=== PATIENT | female | born 1940 | race Caucasian/White ===

== ENCOUNTER 2022-12-08 23:10 | Emergency (ER) | payer OTHER, MEDICAID ==
[~2022-12-08] VITALS: Ht 154.9 cm; Wt 65.0 kg
[~2022-12-08 23:10] MED LIST: AMLO5TAB88; LOSA100T4; METF-415; MONT-39; SITA100T11
[2022-12-08 23:18] VITALS: BP 195/77; O2SAT 98
[2022-12-09] MEDS ORDERED: ACETAMINOPHEN 325MG TABLET PO STA (01:11)
[2022-12-09 02:20] LABS: CLARITY URINE CLEAR (CLEAR); COLOR URINE YELLOW (YELLOW); KETONES URINE NEGATIVE (NEGATIVE); LEUKOCYTE ESTERASE URINE 2+ (NEGATIVE); NITRITE URINE NEGATIVE (NEGATIVE); OCCULT BLOOD URINE NEGATIVE (NEGATIVE); PH URINE 6.5 (4.5-8.0); PROTEIN URINE NEGATIVE (NEGATIVE); SPECIFIC GRAVITY URINE 1.005 (1.005-1.030); UROBILINOGEN URINE 0.2 E.U./dL (0.2-1.0)
[2022-12-09 03:04] LABS: CHLORIDE 105 mEq/L (98-107)
[2022-12-09 03:05] LABS: BASOPHILS % 0.5 % (0.0-2.0); EOSINOPHILS % 1.1 % (0.0-5.0); HEMATOCRIT. 37.7 % (36.0-48.0); LYMPHOCYTES % 28.7 % (20.0-50.0); MEAN CORPUSCULAR HEMOGLOBIN 32.6 pg (28.0-32.0); MEAN CORPUSCULAR VOLUME 94.6 fL (81.0-99.0); MEAN PLATELET VOLUME 9.2 fl (7.4-10.4); MONOCYTES % 5.6 % (2.0-8.0); NEUTROPHILS % 64.1 % (40.0-76.0); PLATELET 242 x1000/uL (130-400); RED BLOOD CELL COUNT 3.98 mill/uL (4.2-5.4); RED CELL DISTRIBUTION WIDTH 13.8 % (11.6-14.6)
[2022-12-09 03:19] LABS: PROTHROMBIN TIME 10.7 sec (9.6-11.0)
[2022-12-09] MEDS ORDERED: DOCU-138 MT (05:26)
[2022-12-09] MEDS ORDERED: ACET-2708 MT (05:26)
[2022-12-09 05:43] VITALS: PULSE 87; RESP 16; TEMP 99
== END 2022-12-09 05:44 | disposition home or self-care (01) ==
LOC: ER 12-09 00:08
DX: K59.00 Constipation, unspecified (principal); E11.9 Type 2 diabetes mellitus without complications; I10 Essential (primary) hypertension; E78.00 Pure hypercholesterolemia, unspecified; Z90.49 Acquired absence of other specified parts of digestive tract; Z98.890 Other specified postprocedural states
CPT/HCPCS: 36415; 74176; 80053; 81003; 85025; 99284

== ENCOUNTER 2023-03-16 14:57 | Emergency (ER) | payer OTHER, MEDICAID ==
[~2023-03-16] VITALS: Ht 160 cm; Wt 91.0 kg
[~2023-03-16 14:57] MED LIST changes: +ACET-2708 MT; +DOCU-138 MT; +LOSA-415; -LOSA100T4
[2023-03-16 15:05] VITALS: BP 177/79; RESP 18; TEMP 99; O2SAT 98
[2023-03-16 15:07] VITALS: PULSE 105
[2023-03-16 15:33] LABS: BASOPHILS % 0.6 % (0.0-2.0); EOSINOPHILS % 0.7 % (0.0-5.0); HEMATOCRIT. 41.8 % (36.0-48.0); LYMPHOCYTES % 15.2 % (20.0-50.0); MEAN CORPUSCULAR HEMOGLOBIN 31.8 pg (28.0-32.0); MEAN CORPUSCULAR HGB CONC 33.5 g/dL (31.0-37.0); MEAN CORPUSCULAR VOLUME 94.8 fL (81.0-99.0); MEAN PLATELET VOLUME 8.9 fl (7.4-10.4); MONOCYTES % 5.4 % (2.0-8.0); NEUTROPHILS % 78.1 % (40.0-76.0); PLATELET 298 x1000/uL (130-400); RED BLOOD CELL COUNT 4.41 mill/uL (4.2-5.4); RED CELL DISTRIBUTION WIDTH 13.3 % (11.6-14.6); WHITE BLOOD COUNT 12.8 x1000/uL (4.5-11.0)
[2023-03-16 15:40] LABS: CHLORIDE 98 mEq/L (98-107); INDEX HEMOLYSI 1 (1-3); INDEX ICTERIC 1 (1-4); INDEX LIPEMIC 1 (1-3); POTASSIUM 3.4 mEq/L (3.5-5.1); SODIUM 136 mEq/L (136-145)
[2023-03-16 15:52] LABS: ALANINE AMINOTRANSFERASE 28 IU/L (13-61); ALBUMIN 3.8 g/dL (3.4-5.0); ASPARTATE AMINOTRANSFERASE 16 IU/L (15-37); BILIRUBIN TOTAL 0.9 mg/dL (0.1-1.0); CALCIUM 8.4 mg/dL (8.5-10.1); CARBON DIOXIDE 27 mEq/L (21-32); CREATININE 1.2 mg/dL (0.6-1.3); GLUCOSE 149 mg/dL (70-105); PROTEIN TOTAL 7.8 g/dL (6.0-8.3); TROPONIN I HIGH SENSITIVITY 28 ng/L (<54); UREA NITROGEN BLOOD 23 mg/dL (7-21)
[2023-03-16 19:13] LABS: CLARITY URINE TURBID (CLEAR); COLOR URINE YELLOW (YELLOW); GLUCOSE URINE NEGATIVE (NEGATIVE); KETONES URINE TRACE (NEGATIVE); LEUKOCYTE ESTERASE URINE 3+ (NEGATIVE); NITRITE URINE NEGATIVE (NEGATIVE); OCCULT BLOOD URINE 3+ (NEGATIVE); PH URINE 5.5 (4.5-8.0); PROTEIN URINE 3+ (NEGATIVE); SPECIFIC GRAVITY URINE 1.017 (1.005-1.030)
[2023-03-16 19:28] LABS: BACTERIA URINE 2+; SQUAMOUS EPITHELIAL CELL URINE 1+ /lpf (RARE/1+); WBC URINE TNTC /hpf (0-2)
[2023-03-16] MEDS ORDERED: NITR-87 MT (21:38)
== END 2023-03-16 22:55 | disposition home or self-care (01) ==
LOC: ER 14:57
DX: N39.0 Urinary tract infection, site not specified (principal); K52.9 Noninfective gastroenteritis and colitis, unspecified; E11.9 Type 2 diabetes mellitus without complications; E78.00 Pure hypercholesterolemia, unspecified; I10 Essential (primary) hypertension; Z90.710 Acquired absence of both cervix and uterus; Z79.899 Other long term (current) drug therapy
CPT/HCPCS: 36415; 71045; 74176; 80053; 81003; 84484; 85025; 87077; 87186; 93005; 99285

== ENCOUNTER 2024-11-30 10:35 | Emergency (ER) | payer OTHER, MEDICAID ==
[~2024-11-30] VITALS: Ht 154.9 cm; Wt 72.6 kg
[~2024-11-30 10:35] MED LIST changes: -ACET-2708 MT; +ACET-3800 PO; +AMLO10TA80 PO; -AMLO5TAB88; +ATOR-2 PO; +CARV25TA47 PO; -DOCU-138 MT; +FURO40TA5 PO; +HYDR50TA39 PO; +LORA10TA7 PO; -LOSA-415; +LOSA1TAB37 PO; -METF-415; +METH4TAB95 MT; +MIRT45TA83 PO; -MONT-39; +SENN1TAB35 PO; -SITA100T11; +SITA100T11 PO; +WHEA152P PO
[2024-11-30 10:37] VITALS: O2SAT 98
[2024-11-30 10:42] VITALS: BP 176/62; PULSE 60; RESP 17; TEMP 36.6; O2SAT 98
[2024-11-30] MEDS: CYCLOBENZAPRINE 10MG TABLET PO ONE (11:26)
[2024-11-30] MEDS: KETOROLAC 30MG/ML VIAL IM ONE (11:26)
[2024-11-30] MEDS ORDERED: IBUP-2029 MT (12:36)
[2024-11-30] MEDS ORDERED: LIDO700A30 TP (12:36)
[2024-11-30] MEDS ORDERED: CYCL5TAB3 MT (12:36)
== END 2024-11-30 12:59 | disposition home or self-care (01) ==
LOC: ER 10:35
DX: M43.16 Spondylolisthesis, lumbar region (principal); M48.061 Spinal stenosis, lumbar region without neurogenic claudication; M47.816 Spondylosis without myelopathy or radiculopathy, lumbar region; E11.9 Type 2 diabetes mellitus without complications; I10 Essential (primary) hypertension; Z79.84 Long term (current) use of oral hypoglycemic drugs; Z79.899 Other long term (current) drug therapy
CPT/HCPCS: 99285; 72131; 96372; J1885

== ENCOUNTER 2025-05-05 17:15 | Emergency (ER) | payer OTHER, MEDICAID ==
[~2025-05-05] VITALS: Ht 152.4 cm; Wt 60.0 kg
[~2025-05-05 17:15] MED LIST changes: +CYCL5TAB3 MT; +LIDO700A30 TP
[2025-05-05 17:29] VITALS: O2SAT 99
[2025-05-05] MEDS: ACETAMINOPHEN 500MG TABLET PO ONE (19:34)
[2025-05-05] MEDS: KETOROLAC 30MG/ML VIAL IM ONE (19:56)
[2025-05-05 20:37] LABS: BASOPHILS % 0.6 % (0.0-2.0); EOSINOPHILS % 0.2 % (0.0-5.0); HEMATOCRIT. 40.1 % (36.0-48.0); HEMOGLOBIN. 13.5 g/dL (12.0-16.0); LYMPHOCYTES % 15.3 % (20.0-50.0); MEAN PLATELET VOLUME 8.8 fl (7.4-10.4); MONOCYTES % 7.0 % (2.0-8.0); NEUTROPHILS % 76.9 % (40.0-76.0); PLATELET 338 x1000/uL (130-400); RED BLOOD CELL COUNT 4.20 mill/uL (4.2-5.4); RED CELL DISTRIBUTION WIDTH 13.7 % (11.6-14.6)
[2025-05-05 20:45] LABS: CREATININE 1.0 mg/dL (0.6-1.0)
[2025-05-05 20:46] LABS: UREA NITROGEN BLOOD 10 mg/dL (9-23)
[2025-05-05 20:47] LABS: ASPARTATE AMINOTRANSFERASE 9 IU/L (<34)
[2025-05-05 20:48] LABS: BILIRUBIN TOTAL 0.7 mg/dL (0.1-1.0); PROTEIN TOTAL 7.5 g/dL (6.0-8.3)
[2025-05-05] MEDS ORDERED: TOPUD MT (21:16)
[2025-05-05] MEDS ORDERED: DICL100G46 TP (21:16)
[2025-05-05 21:34] VITALS: BP 135/58; PULSE 66; RESP 18; TEMP 36.7; O2SAT 99
[2025-05-05 22:40] LABS: ERYTHROCYTE SEDIMENTATION RATE 58 mm/hr (0-42)
== END 2025-05-05 21:35 | disposition home or self-care (01) ==
LOC: ER 17:56
DX: M19.031 Primary osteoarthritis, right wrist (principal); I10 Essential (primary) hypertension; E11.9 Type 2 diabetes mellitus without complications; E78.00 Pure hypercholesterolemia, unspecified; Z90.710 Acquired absence of both cervix and uterus; Z79.899 Other long term (current) drug therapy; Z79.84 Long term (current) use of oral hypoglycemic drugs
CPT/HCPCS: 99283; 80053; 85025; 85651; 87040; 36415; 84145; 73110; 96372; J1885